=== PATIENT | male | born 1950 | race Caucasian/White ===

== ENCOUNTER 2016-02-10 11:24 | Emergency (ER) | payer MEDICARE ==
[2016-02-10 11:46] VITALS: O2SAT 98
--- NOTE | 2016-02-10 11:55 | ERPHSYRPT ---
- History of Present Illness Time Seen by Provider: 02/10/16 11:45 Source: patient Exam Limitations: no limitations Patient Subjective Stated Complaint: fall at 1030 Triage Nursing Assessment: states [place] and feet came out landing on back. c/o lower back pain, rt hip and rt shoulder. denies loc. no bruising or swelling noted. gait slow but steady into ER. nonspecific as to where he gets his pain pills from. abrasion to rt 5th dorsal mid knuckle-- bleeding controlled Occurred: hours ago (1) Reason for Fall: slipped Injuries/Pain Location: back, upper, lower Loss of Consciousness: no loss of consciousness Quality: sharpness Severity of Pain-Max: moderate Severity of Pain-Current: moderate Modifying Factors: Improves With: movement Associated Symptoms (Fall): back pain Allergies/Adverse Reactions: codeine Allergy (Verified 02/10/16 11:47) Home Medications: No Home Meds 1 ea MC UD 02/10/16 [History] Hx Tetanus, Diphtheria Vaccination/Date Given: Yes Hx Influenza Vaccination/Date Given: No Hx Pneumococcal Vaccination/Date Given: No Immunizations Up to Date: Yes - Review of Systems Constitutional: No Symptoms Eyes: No Symptoms Ears, Nose, & Throat: No Symptoms Respiratory: No Symptoms Cardiac: No Symptoms Abdominal/Gastrointestinal: No Symptoms Genitourinary Symptoms: No Symptoms Musculoskeletal: Back Pain, Fall, Joint Pain Skin: No Symptoms Neurological: No Symptoms Psychological: No Symptoms Endocrine: No Symptoms Hematologic/Lymphatic: No Symptoms Immunological/Allergic: No Symptoms - Past Medical History Pertinent Past Medical History: Yes Neurological History: TIA ENT History: No Pertinent History Cardiac History: Coronary Artery Disease, High Cholesterol, Hypertension Respiratory History: Other Endocrine Medical History: No Pertinent History Musculoskeletal History: Other GI Medical History: GERD History: No Pertinent History Psycho-Social History: No Pertinent History Male Reproductive Disorders: No Pertinent History Other Medical History: BACK PAIN - Past Surgical History Past Surgical History: Yes Neuro Surgical History: No Pertinent History Cardiac: No Pertinent History Respiratory: No Pertinent History Gastrointestinal: Cholecystectomy Genitourinary: No Pertinent History Musculoskeletal: Orthopedic Surgery Male Surgical History: No Pertinent History Other Surgical History: LEFT WRIST - Social History Smoking Status: Current every day smoker How long have you smoked: 58 Exposure to second hand smoke: Yes Drug Use: none Patient Lives Alone: Yes - Nursing Vital Signs Nursing Vital Signs: Initial Vital Signs Temperature 98.3 F Temperature Source Oral Pulse Rate 64 Respiratory Rate 18 Blood Pressure 126/68 Pain Intensity 10 - Seng Coma Score Best Eye Response (Seng): (4) open spontaneously Best Verbal Response ([place]): (5) oriented Best Motor Response ([place]): (6) obeys commands Seng Total: 15 - Physical Exam General Appearance: mild distress Head Injury: no evidence of injury Eye Exam: eyes nml inspection ENT Exam: airway nml Neck Exam: supple, trachea midline, full range of motion, normal alignment Respiratory/Chest Exam: normal breath sounds Cardiovascular Exam: normal heart sounds, regular rate/rhythm, normal peripheral pulses Gastrointestinal Exam: soft, normal bowel sounds Back Exam: normal inspection (lumbar), normal range of motion Extremity Exam: normal inspection, normal range of motion, capillary refill <3 sec, pelvis stable Neurologic Exam: alert, oriented x 3, cooperative Skin Exam: normal color, warm, dry SpO2 Interpretation: normal SpO2: 98 Oxygen Delivery: Room Air - Course Nursing assessment & vital signs reviewed: Yes - Radiology Exams Hip X-ray Interpretation: Discussed w/ radiologist, Negative Shoulder X-ray Interpretation: Discussed w/ radiologist (Stable moderate AC degenerative arthropathy. No new injury.) L-Spine X-ray Interpretation: Discussed w/ radiologist (Nonacute lumbar spine with chronic features of DDD.) Ordered Tests: Active Orders 24 hr Category Date Time Status Wound Care STAT Care 02/10/16 12:46 Active HIP UNI (2V) INCL PEL IF DONE Stat Exams 02/10/16 11:53 Completed LUMBAR LIMITED (2 OR 3 VIEWS) Stat Exams 02/10/16 11:53 Completed SHOULDER Stat Exams 02/10/16 11:53 Completed Medication Summary Discontinued Medications Generic Name Dose Route Start Last Admin Trade Name Freq PRN Reason Stop Dose Admin Bacitracin 0.9 gm 02/10/16 12:46 02/10/16 12:48 Baciguent Packet TP 02/10/16 12:47 0.9 gm STAT ONE Administration Bacitracin Confirm 02/10/16 12:48 Baciguent Packet Administered 02/10/16 12:49 Dose 1 gm .ROUTE .STK-MED ONE - Progress Progress: improved Counseled pt/family regarding: diagnosis, need for follow-up (PCP 1 week), rad results - Departure Time of Disposition: 13:00 Departure Disposition: Home Clinical Impression: Chronic back pain Contusion of right shoulder Qualifiers: Encounter type: initial encounter Qualified Code(s): S40.011A - Contusion of right shoulder, initial encounter Accidental fall Qualifiers: Encounter type: initial encounter Qualified Code(s): W19.XXXA - Unspecified fall, initial encounter Condition: Stable Critical Care Time: No
--- NOTE | 2016-02-10 12:32 | XRAY ---
Indication: Pain following fall. Comparison: October 01, 2013 3 views of the lumbar spine demonstrate stable moderate L2-L3 degenerative disc disease, minimal L5-S1 disc space narrowing with facet arthropathy, and minimal L4-L5 endplate spurring. Again negative for acute fracture, subluxation, or suspicious bony lesions. There remains scattered aortic calcifications. Interval cholecystectomy. Impression: Again nonacute lumbar spine with chronic features.
--- NOTE | 2016-02-10 12:34 | XRAY ---
Indication: Pain following fall. Comparison: None 2 views of the right hip intact. No bony, articular, or soft tissue abnormalities.
--- NOTE | 2016-02-10 12:35 | XRAY ---
Indication: Pain following fall. Comparison: May 30, 2014 3 views of the right shoulder demonstrate stable moderate AC degenerative arthropathy. No new/acute bony, articular, or soft tissue abnormalities.
[2016-02-10] MEDS ORDERED: BACIGUENT PACKET TP ONE (12:46)
[2016-02-10] MEDS ORDERED: BACIGUENT PACKET ONE (12:48)
[2016-02-10 13:08] VITALS: BP 134/70; PULSE 73
== END 2016-02-10 13:08 | disposition home or self-care (01) ==
LOC: ED 11:24
DX: S40.011A Contusion of right shoulder, initial encounter (principal); M54.9 Dorsalgia, unspecified; W01.0XXA Fall on same level from slipping, tripping and stumbling without subsequent striking against object, initial encounter; M25.551 Pain in right hip; M25.511 Pain in right shoulder; S60.416A Abrasion of right little finger, initial encounter; I25.10 Atherosclerotic heart disease of native coronary artery without angina pectoris; E78.00 Pure hypercholesterolemia, unspecified; I10 Essential (primary) hypertension
CPT/HCPCS: 72100; 73030; 73502; 99283

== ENCOUNTER 2018-03-29 16:32 | Emergency (ER) | payer MEDICARE ==
--- NOTE | 2018-03-29 16:44 | ERPHSYRPT ---
- History of Present Illness Time Seen by Provider: 03/29/18 16:39 Source: patient Exam Limitations: no limitations Physician History: 67 y/o white male presents with urinary retention for a couple of days. no more than a trickle at a time. he has also noticed some constipation. he feels as though he is going to bust. felt feverish at home. no n/v/d. has lower suprapubic pressure. pt states he is not on any meds. he states he does have kidney issues. Timing/Duration: day(s) ( a few days.), gradual onset Quality: fullness, pressure Onset Location: suprapubic Severity of Pain-Max: mild Severity of Pain-Current: mild Modifying Factors: Improves With: defecating (not as much), urinating (not as much) Associated Symptoms: abdominal pain Sexual intercourse history: non-contributory Allergies/Adverse Reactions: codeine Allergy (Verified 03/29/18 16:50) Home Medications: No Home Meds [No Home Meds] 1 [facility] MERYL 02/10/16 [History] Hx Tetanus, Diphtheria Vaccination/Date Given: Yes Hx Influenza Vaccination/Date Given: No Hx Pneumococcal Vaccination/Date Given: No - Past Medical History Pertinent Past Medical History: Yes Neurological History: TIA ENT History: No Pertinent History Cardiac History: Coronary Artery Disease, High Cholesterol, Hypertension Respiratory History: Other Endocrine Medical History: No Pertinent History Musculoskeletal History: Other GI Medical History: GERD History: No Pertinent History Psycho-Social History: No Pertinent History Male Reproductive Disorders: No Pertinent History Other Medical History: BACK PAIN - Past Surgical History Past Surgical History: Yes Neuro Surgical History: No Pertinent History Cardiac: No Pertinent History Respiratory: No Pertinent History Gastrointestinal: Cholecystectomy Genitourinary: No Pertinent History Musculoskeletal: Orthopedic Surgery Male Surgical History: No Pertinent History Other Surgical History: LEFT WRIST - Social History Smoking Status: Current every day smoker How long have you smoked: 58 Exposure to second hand smoke: Yes Drug Use: none Patient Lives Alone: Yes - Review of Systems Constitutional: Fever Eyes: No Symptoms Ears, Nose, & Throat: No Symptoms Respiratory: No Symptoms Cardiac: No Symptoms Abdominal/Gastrointestinal: Abdominal Pain Genitourinary Symptoms: Urinary Retention Musculoskeletal: No Symptoms Skin: No Symptoms Neurological: No Symptoms Psychological: No Symptoms Endocrine: No Symptoms Hematologic/Lymphatic: No Symptoms Immunological/Allergic: No Symptoms All Other Systems: Reviewed and Negative - Nursing Vital Signs Nursing Vital Signs: Initial Vital Signs Temperature 100.8 F 03/29/18 16:36 Pulse Rate 105 H 03/29/18 16:36 Respiratory Rate 16 03/29/18 16:36 Blood Pressure 133/74 03/29/18 16:36 O2 Sat by Pulse Oximetry 96 03/29/18 16:36 Pain Scale Pain Intensity 8 - Physical Exam General Appearance: mild distress, alert, anxiety Eye Exam: PERRL/EOMI Ears, Nose, Throat Exam: normal ENT inspection, dry mucous membranes Neck Exam: normal inspection, non-tender, supple, full range of motion Respiratory Exam: normal breath sounds, lungs clear, airway intact, No chest tenderness, No respiratory distress, No accessory muscle use, No rhonchi, No wheezing, No stridor Cardiovascular Exam: regular rate/rhythm, normal heart sounds, normal peripheral pulses Gastrointestinal/Abdomen Exam: soft, tenderness (suprapubic), No guarding, No rebound Rectal Exam: not done Back Exam: normal inspection, normal range of motion, No CVA tenderness, No vertebral tenderness Extremity Exam: normal inspection, normal range of motion, pelvis stable Neurologic Exam: alert, oriented x 3, cooperative, management internship II-XII nml as tested Skin Exam: normal color, warm, dry Lymphatic Exam: No adenopathy SpO2 Interpretation: normal O2 Delivery: Room Air - Course Nursing assessment & vital signs reviewed: Yes Ordered Tests: Active Orders 24 hr Category Date Time Status Cath for Specimen-Straight STAT Care 03/29/18 16:47 Active Muller [Catheter-Gillette Muller] STAT Care 03/29/18 16:58 Active IV Insertion STAT Care 03/29/18 16:45 Active ABDOMEN AND PELVIS W/0 CONTRAS [CT] Stat Exams 03/29/18 16:46 Completed AMYLASE Stat Lab 03/29/18 16:45 Completed BLOOD CULTURE Stat Lab 03/29/18 16:46 Ordered CBC W DIFF Stat Lab 03/29/18 16:45 Completed CMP Stat Lab 03/29/18 16:45 Completed CULTURE,URINE Stat Lab 03/29/18 16:57 Received LIPASE Stat Lab 03/29/18 16:45 Completed Lactic Acid Stat Lab 03/29/18 17:00 Completed Manual Differential NC Stat Lab 03/29/18 16:45 Completed UA W/RFX UR CULTURE Stat Lab 03/29/18 16:57 Completed Medication Summary Generic Name Dose Route Start Last Admin Trade Name Ludin PRN Reason Stop Dose Admin Acetaminophen 650 mg 03/29/18 17:52 Tylenol 325 Mg PO 03/29/18 17:53 STAT STA Ceftriaxone Sodium/Dextrose 1 g in 50 mls @ 100 mls/hr 03/29/18 17:39 Rocephin 1 Gm-D5w 50 Ml Bag IV 03/29/18 18:08 STAT STA Discontinued Medications Generic Name Dose Route Start Last Admin Trade Name Freq PRN Reason Stop Dose Admin Sodium Chloride 1,000 mls @ 999 mls/hr 03/29/18 16:45 03/29/18 16:58 Sodium Chloride 0.9% 1000 Ml IV 03/29/18 17:45 999 mls/hr .Q1H1M STA Administration Sodium Chloride Confirm 03/29/18 16:56 Sodium Chloride 0.9% 1000 Ml Administered 03/29/18 16:57 Dose 1,000 mls @ ud .ROUTE .STK-MED ONE Ceftriaxone Sodium/Dextrose Confirm 03/29/18 17:43 Rocephin 1 Gm-D5w 50 Ml Bag Administered 03/29/18 17:44 Dose 1 g in 50 mls @ ud IV .STK-MED ONE Lab/Rad Data: Laboratory Result Diagrams 03/29/18 16:45 03/29/18 16:45 Laboratory Results 03/29/18 03/29/18 03/29/18 Range/Units 17:00 16:57 16:45 WBC (4.0-10.5) K/mm3 RBC (4.1-5.6) M/mm3 Hgb (12.5-18.0) gm/dl Hct (42-50) % MCV (78-100) fl MCH (26-32) pg MCHC (32-36) g/dl RDW (11.5-14.0) % Plt Count (150-450) K/mm3 MPV (6-9.5) fl Segmented Neutrophils (36.-66.) % Band Neutrophils (0.0-2.0) % Lymphocytes (Manual) (24-44) % Monocytes (Manual) (0.0-12.0) % Platelet Estimate (NORMAL) RBC Morphology Sodium 136 L (137-145) mmol/L Potassium 4.0 (3.5-5.1) mmol/L Chloride 103 (98-107) mmol/L Carbon Dioxide 25 (22-30) mmol/L Anion Gap 12.9 (5-15) MEQ/L BUN 14 (9-20) mg/dL Creatinine 1.37 H (0.66-1.25) mg/dL Estimated GFR 55.3 ML/MIN Glucose 113 H (74-106) mg/dL Lactic Acid 1.2 (0.4-2.0) Calcium 9.1 (8.4-10.2) mg/dL Total Bilirubin 1.10 (0.2-1.3) mg/dL AST 20 (17-59) U/L ALT 28 (0-50) U/L Alkaline Phosphatase 87 (38-126) U/L Serum Total Protein 7.6 (6.3-8.2) g/dL Albumin 4.3 (3.5-5.0) g/dL Amylase 63 (30-110) U/L Lipase 83 (23-300) U/L Urine Color YELLOW (YELLOW) Urine Appearance CLOUDY (CLEAR) Urine pH 5.0 (5-6) Ur Specific [place] 1.019 (1.005-1.025) Urine Protein 30 (Negative) Urine Ketones NEGATIVE (NEGATIVE) Urine Blood LARGE (0-5) Sadiq/ul Urine Nitrite POSITIVE (NEGATIVE) Urine Bilirubin NEGATIVE (NEGATIVE) Urine Urobilinogen NEGATIVE (0-1) mg/dL Ur Leukocyte Esterase MODERATE (NEGATIVE) Urine WBC (Auto) >100 (0-5) /HPF Urine RBC (Auto) >101 (0-2) /HPF U Epithel Cells (Auto) FEW (FEW) /HPF Urine Bacteria (Auto) MANY (NEGATIVE) /HPF Unidentified Crystals 25-50 (NEGATIVE) /HPF Urine Mucus (Auto) SLIGHT (NEGATIVE) /HPF Urine Culture Reflexed YES (NO) Urine Glucose NEGATIVE (NEGATIVE) mg/dL 03/29/18 Range/Units 16:45 WBC 22.3 H (4.0-10.5) K/mm3 RBC 5.44 (4.1-5.6) M/mm3 Hgb 16.1 (12.5-18.0) gm/dl Hct 47.6 (42-50) % MCV 87.5 (78-100) fl MCH 29.6 (26-32) pg MCHC 33.8 (32-36) g/dl RDW 13.5 (11.5-14.0) % Plt Count 133 L (150-450) K/mm3 MPV 11.1 H (6-9.5) fl Segmented Neutrophils 79 H (36.-66.) % Band Neutrophils 5 H (0.0-2.0) % Lymphocytes (Manual) 13 L (24-44) % Monocytes (Manual) 3 (0.0-12.0) % Platelet Estimate DECREASED (NORMAL) RBC Morphology NORMAL Sodium (137-145) mmol/L Potassium (3.5-5.1) mmol/L Chloride (98-107) mmol/L Carbon Dioxide (22-30) mmol/L Anion Gap (5-15) MEQ/L BUN (9-20) mg/dL Creatinine (0.66-1.25) mg/dL Estimated GFR ML/MIN Glucose (74-106) mg/dL Lactic Acid (0.4-2.0) Calcium (8.4-10.2) mg/dL Total Bilirubin (0.2-1.3) mg/dL AST (17-59) U/L ALT (0-50) U/L Alkaline Phosphatase (38-126) U/L Serum Total Protein (6.3-8.2) g/dL Albumin (3.5-5.0) g/dL Amylase (30-110) U/L Lipase (23-300) U/L Urine Color (YELLOW) Urine Appearance (CLEAR) Urine pH (5-6) Ur Specific Vass (1.005-1.025) Urine Protein (Negative) Urine Ketones (NEGATIVE) Urine Blood (0-5) Sadiq/ul Urine Nitrite (NEGATIVE) Urine Bilirubin (NEGATIVE) Urine Urobilinogen (0-1) mg/dL Ur Leukocyte Esterase (NEGATIVE) Urine WBC (Auto) (0-5) /HPF Urine RBC (Auto) (0-2) /HPF U Epithel Cells (Auto) (FEW) /HPF Urine Bacteria (Auto) (NEGATIVE) /HPF Unidentified Crystals (NEGATIVE) /HPF Urine Mucus (Auto) (NEGATIVE) /HPF Urine Culture Reflexed (NO) Urine Glucose (NEGATIVE) mg/dL - Progress Progress: improved, re-examined Progress Note: 03/29/18 17:34 ct scan abd/pelvis-no acute process. Counseled pt/family regarding: lab results, diagnosis, need for follow-up, rad results - Departure Time of Disposition: 17:55 Departure Disposition: Home Clinical Impression: Mild renal insufficiency, UTI (urinary tract infection), Leukocytosis Condition: Stable Critical Care Time: No Referrals: SARAH HENRY MD [Primary Care Provider] - Additional Instructions: drink plenty of fluids. use tylenol for pain and fever. follow up with primary doctor for further management Prescriptions: Ciprofloxacin [Cipro 500 MG] 500 mg PO BID #20 tablet
[2018-03-29] MEDS ORDERED: Sodium Chloride 0.9% 1000 ML 1,000 ML IV STA (16:45)
[2018-03-29] MEDS ORDERED: Sodium Chloride 0.9% 1000 ML 1,000 ML ONE (16:56)
[2018-03-29 17:10] LABS: Hematocrit 47.6 % (42-50); Hemoglobin 16.1 gm/dl (12.5-18.0); Mean Cell Volume 87.5 fl (78-100); Mean Corpuscular Hemoglobin 29.6 pg (26-32); Mean Corpuscular Hgb Concent. 33.8 g/dl (32-36); Mean Platelet Volume 11.1 fl (6-9.5); Platelet Count 133 K/mm3 (150-450); Red Blood Count 5.44 M/mm3 (4.1-5.6); Red Cell Distribution Width 13.5 % (11.5-14.0); White Blood Count 22.3 K/mm3 (4.0-10.5)
--- NOTE | 2018-03-29 17:13 | XRAY ---
Indication: Fever, constipation, and urinary retention. Multiple contiguous axial images obtained through the abdomen and pelvis without contrast as ordered. Comparison: September 30, 2013. Lung bases demonstrates minimal bibasilar dependent atelectasis and left base fibrosis/scarring. No infiltrate or effusion. Heart is not enlarged. Noncontrasted stomach and bowel loops appear nonobstructed. Normal appendix. Little scattered colonic fecal debris. New balloon tip Muller catheter empties the urinary bladder. Interval cholecystectomy. No free fluid/air. New splenomegaly measuring 14.3 cm in CC dimension. Remaining liver, pancreas, spleen, adrenal glands, kidneys, and ureters unremarkable for noncontrast exam. Mild aortoiliac calcifications without AAA. Osseous structures intact again with mild degenerative changes throughout the spine. No ventral or inguinal hernias. Impression: 1. New splenomegaly and Muller catheter in situ. 2. Remaining CT abdomen/pelvis without contrast exam is negative. CTDI 17.38
[2018-03-29 17:23] LABS: ALBUMIN 4.3 g/dL (3.5-5.0); ANION GAP 12.9 MEQ/L (5-15); BILIRUBIN,TOTAL 1.1 mg/dL (0.2-1.3); Calcium 9.1 mg/dL (8.4-10.2); Creatinine 1 1.37 mg/dL (0.66-1.25); Total Protein 7.6 g/dL (6.3-8.2)
[2018-03-29 17:26] LABS: Appearance CLOUDY (CLEAR); Bacteria MANY /HPF (NEGATIVE); Bilirubin NEGATIVE (NEGATIVE); Blood LARGE Ery/ul (0-5); Crystals Unidentified 25-50 /HPF (NEGATIVE); Glucose NEGATIVE (NEGATIVE); Ketones NEGATIVE (NEGATIVE); Leukocyte Esterase MODERATE (NEGATIVE); Mucus SLIGHT /HPF (NEGATIVE); Nitrite POSITIVE (NEGATIVE); Protein,Urine Dip 30 (Negative); Specific Gravity 1.019 (1.005-1.025); Urobilinogen NEGATIVE mg/dL (0-1); WBC >100 /HPF (0-5)
[2018-03-29 17:27] LABS: RBC >101 /HPF (0-2)
[2018-03-29 17:28] LABS: Epithelial Cells FEW /HPF (FEW)
[2018-03-29] MEDS ORDERED: ROCEPHIN 1 Gm-D5w 50 ml Bag** 1 G/50 ML IVPB IV STA (17:39)
[2018-03-29 17:41] LABS: BAND 5 % (0.0-2.0); Lymphocytes 13 % (24-44); Monocyte 3 % (0.0-12.0); Neutrophils 79 % (36.-66.); Platelet Estimate DECREASED (NORMAL); Total Cells Counted 100
[2018-03-29] MEDS ORDERED: ROCEPHIN 1 Gm-D5w 50 ml Bag** 1 G/50 ML IVPB IV ONE (17:43)
[2018-03-29] MEDS ORDERED: Zofran 4 MG/2 ML VIAL IV ONE (17:51)
[2018-03-29] MEDS ORDERED: TYLENOL 325 MG PO STA (17:52)
[2018-03-29] MEDS ORDERED: TORAdol 30 mg Injection IV ONE (17:52)
[2018-03-29] MEDS ORDERED: ZOFRAN ODT 4 MG ONE (17:59)
[2018-03-29] MEDS ORDERED: TORAdol 30 mg Injection ONE (17:59)
[2018-03-29] MEDS ORDERED: TYLENOL 325 MG ONE (17:59)
[2018-03-29] MEDS ORDERED: Zofran 4 MG/2 ML VIAL ONE (18:03)
[2018-03-29 18:38] VITALS: BP 116/62; PULSE 102; O2SAT 97
== END 2018-03-29 18:42 | disposition home or self-care (01) ==
LOC: ED 16:32
DX: N28.9 Disorder of kidney and ureter, unspecified (principal); N39.0 Urinary tract infection, site not specified; D72.829 Elevated white blood cell count, unspecified; I25.10 Atherosclerotic heart disease of native coronary artery without angina pectoris; I10 Essential (primary) hypertension; Z86.73 Personal history of transient ischemic attack (TIA), and cerebral infarction without residual deficits; K21.9 Gastro-esophageal reflux disease without esophagitis
CPT/HCPCS: 36000; 36415; 51702; 74176; 80053; 81001; 82150; 83605; 83690; 85025; 87077; 87086; 87186; 96360; 96365; 96374; 96375; 99285; P9612; J0696; J1885; J2405; Q0162; A9270-GY

== ENCOUNTER 2020-03-03 16:22 | Emergency (ER) | payer MEDICARE ==
[2020-03-03 17:00] LABS: Absolute Neutrophil Ct (ANC) 5.15 (1.4-6.9); BASOPHIL % 0.5 % (0.0-0.4); Basophil (Absolute #) 0.04 (0-0.4); Eosinophil (Absolute #) 0.08 (0-0.5); Hematocrit 46.8 % (42-50); Hemoglobin 15.7 gm/dl (12.5-18.0); Lymphocytes % 27.6 % (24.0-44.0); Mean Cell Volume 88.3 fl (78-100); Mean Corpuscular Hemoglobin 29.6 pg (26-32); Mean Corpuscular Hgb Concent. 33.5 g/dl (32-36); Mean Platelet Volume 10.7 fl (7.5-11.0); Monocyte (Absolute #) 0.51 (0.0-1.3); Monocytes % 6.4 % (0.0-12.0); Neutrophil % 64.5 % (36.0-66.0); Platelet Count 161 K/mm3 (150-450); Red Cell Distribution Width 13.3 % (11.5-14.0)
[2020-03-03 17:09] LABS: Appearance CLEAR (CLEAR); Bilirubin NEGATIVE (NEGATIVE); Blood SMALL Ery/ul (0-5); Glucose NEGATIVE (NEGATIVE); Ketones NEGATIVE (NEGATIVE); Leukocyte Esterase NEGATIVE (NEGATIVE); Nitrite NEGATIVE (NEGATIVE); Protein,Urine Dip NEGATIVE (Negative); RBC 0-2 /HPF (0-2); Specific Gravity 1.013 (1.005-1.025); Urobilinogen NEGATIVE mg/dL (0-1)
[2020-03-03 17:15] LABS: ALBUMIN 4.3 g/dL (3.5-5.0); ANION GAP 10.9 MEQ/L (5-15); BILIRUBIN,TOTAL 0.5 mg/dL (0.2-1.3); Calcium 9.3 mg/dL (8.4-10.2); Creatinine 1 1.28 mg/dL (0.66-1.25); EST GLOMERULAR FILTRATION RATE 59.4 ML/MIN; Potassium 4.5 mmol/L (3.5-5.1); Total Protein 7.6 g/dL (6.3-8.2)
[2020-03-03 17:34] VITALS: BP 114/68; PULSE 72; O2SAT 95
--- NOTE | 2020-03-03 17:48 | ERPHSYRPT ---
- History of Present Illness Time Seen by Provider: 03/03/20 17:00 Patient Subjective Stated Complaint: Pt states that he has been having pain in his lower groin for the past 4-5 months and he has been urinating a lot too, reports having pain in his lower back that he used to get oxycodone from Dr. Gonzales for Triage Nursing Assessment: Pt brought self to the ER, vitals wnl, rates pain as an 8/10 when he urinates, pulses normal, skin n/w/d, denies any injuries to testicales or groin, doesn't appear to be in any distress Physician History: 69-year-old male with a history of 4 weeks or months of chronic frequent urination difficulty starting his urine feeling as if he does not empty completely. He also complains of dysuria with urination denies any fever chills or sweats the pain is primarily suprapubic but is now developed some pain in the flanks. Quality: burning, pressure Onset Location: suprapubic, generalized flank Pain Radiation: generalized flank Severity of Pain-Max: moderate Severity of Pain-Current: mild Modifying Factors: Improves With: urinating Associated Symptoms: abdominal pain, urinary frequency Prior abdominal problems: none Allergies/Adverse Reactions: codeine Allergy (Verified 03/03/20 16:44) Home Medications: Tamsulosin HCl 0.4 mg PO DAILY 03/03/20 [History] Hx Tetanus, Diphtheria Vaccination/Date Given: Yes Hx Influenza Vaccination/Date Given: No Hx Pneumococcal Vaccination/Date Given: No Travel Risk - International Travel Have you traveled outside of the country in past 3 weeks: No - Coronavirus Screening Are you exhibiting any of the following symptoms?: No Close contact with a COVID-19 positive Pt in past 14-21 Days: No - Past Medical History Pertinent Past Medical History: Yes Neurological History: TIA ENT History: No Pertinent History Cardiac History: Coronary Artery Disease, High Cholesterol, Hypertension Respiratory History: Other Endocrine Medical History: No Pertinent History Musculoskeletal History: Other GI Medical History: GERD History: No Pertinent History Psycho-Social History: No Pertinent History Male Reproductive Disorders: No Pertinent History Other Medical History: BACK PAIN - Past Surgical History Past Surgical History: Yes Neuro Surgical History: No Pertinent History Cardiac: No Pertinent History Respiratory: No Pertinent History Gastrointestinal: Cholecystectomy Genitourinary: No Pertinent History Musculoskeletal: Orthopedic Surgery Male Surgical History: No Pertinent History Other Surgical History: LEFT WRIST - Social History Smoking Status: Current every day smoker How long have you smoked: 58 Exposure to second hand smoke: Yes Drug Use: none Patient Lives Alone: No - Review of Systems Constitutional: No Fever, No Chills Eyes: No Symptoms Ears, Nose, & Throat: No Symptoms Respiratory: No Cough, No Dyspnea Cardiac: No Chest Pain, No Edema, No Syncope Abdominal/Gastrointestinal: No Abdominal Pain, No Nausea, No Vomiting, No Diarrhea Genitourinary Symptoms: Dysuria, Frequency, Hesitancy, Urgency, Urinary Retention Musculoskeletal: No Back Pain, No Neck Pain Skin: No Rash Neurological: No Dizziness, No Focal Weakness, No Sensory Changes Psychological: No Symptoms Endocrine: No Symptoms All Other Systems: Reviewed and Negative - Nursing Vital Signs Nursing Vital Signs: Initial Vital Signs Temperature 97.3 F 03/03/20 16:31 Pulse Rate 69 03/03/20 16:31 Blood Pressure 140/73 03/03/20 16:31 O2 Sat by Pulse Oximetry 97 03/03/20 16:31 Pain Scale Pain Intensity 8 - Physical Exam General Appearance: no apparent distress, alert Eye Exam: PERRL/EOMI Ears, Nose, Throat Exam: pharynx normal, moist mucous membranes Neck Exam: normal inspection, supple Respiratory Exam: normal breath sounds, lungs clear Cardiovascular Exam: regular rate/rhythm, No edema Gastrointestinal/Abdomen Exam: soft, No tenderness Back Exam: normal inspection, No CVA tenderness Extremity Exam: normal inspection, normal range of motion, No pedal edema Neurologic Exam: alert, oriented x 3, cooperative, sensation nml, No motor deficits Skin Exam: normal color, warm, dry, No rash SpO2: 95 - Course Nursing assessment & vital signs reviewed: Yes - CT Exams Abdomen/Pelvis CT Interpretation: Other (Compared to approximate 1 year ago there is a stable 14 cm splenomegaly enlarged prostate no new or acute findings.) Ordered Tests: Active Orders 24 hr Category Date Time Status ABDOMEN AND PELVIS W/0 CONTRAS [CT] Stat Exams 03/03/20 16:42 Taken CBC W DIFF Stat Lab 03/03/20 16:55 Completed CMP Stat Lab 03/03/20 16:55 Completed UA W/RFX UR CULTURE Stat Lab 03/03/20 16:44 Completed Lab/Rad Data: Laboratory Result Diagrams 03/03/20 16:55 03/03/20 16:55 Laboratory Results 03/03/20 03/03/20 03/03/20 Range/Units 16:55 16:55 16:44 WBC 8.0 (4.0-10.5) K/mm3 RBC 5.30 (4.1-5.6) M/mm3 Hgb 15.7 (12.5-18.0) gm/dl Hct 46.8 (42-50) % MCV 88.3 (78-100) fl MCH 29.6 (26-32) pg MCHC 33.5 (32-36) g/dl RDW 13.3 (11.5-14.0) % Plt Count 161 (150-450) K/mm3 MPV 10.7 (7.5-11.0) fl Gran % 64.5 (36.0-66.0) % Eos # (Auto) 0.08 (0-0.5) Absolute Lymphs (auto) 2.20 (1.0-4.6) Absolute Monos (auto) 0.51 (0.0-1.3) Lymphocytes % 27.6 (24.0-44.0) % Monocytes % 6.4 (0.0-12.0) % Eosinophils % 1.0 (0.00-5.0) % Basophils % 0.5 (0.0-0.4) % Absolute Granulocytes 5.15 (1.4-6.9) Basophils # 0.04 (0-0.4) Sodium 137 (137-145) mmol/L Potassium 4.5 (3.5-5.1) mmol/L Chloride 106 (98-107) mmol/L Carbon Dioxide 25 (22-30) mmol/L Anion Gap 10.9 (5-15) MEQ/L BUN 21 H (9-20) mg/dL Creatinine 1.28 H (0.66-1.25) mg/dL Estimated GFR 59.4 ML/MIN Glucose 104 (74-106) mg/dL Calcium 9.3 (8.4-10.2) mg/dL Total Bilirubin 0.50 (0.2-1.3) mg/dL AST 28 (17-59) U/L ALT 25 (0-50) U/L Alkaline Phosphatase 79 (38-126) U/L Serum Total Protein 7.6 (6.3-8.2) g/dL Albumin 4.3 (3.5-5.0) g/dL Urine Color YELLOW (YELLOW) Urine Appearance CLEAR (CLEAR) Urine pH 5.0 (5-6) Ur Specific [place] 1.013 (1.005-1.025) Urine Protein NEGATIVE (Negative) Urine Ketones NEGATIVE (NEGATIVE) Urine Blood SMALL (0-5) Sadiq/ul Urine Nitrite NEGATIVE (NEGATIVE) Urine Bilirubin NEGATIVE (NEGATIVE) Urine Urobilinogen NEGATIVE (0-1) mg/dL Ur Leukocyte Esterase NEGATIVE (NEGATIVE) Urine WBC (Auto) NONE (0-5) /HPF Urine RBC (Auto) 0-2 (0-2) /HPF U Epithel Cells (Auto) NONE (FEW) /HPF Urine Bacteria (Auto) NONE (NEGATIVE) /HPF Urine Culture Reflexed NO (NO) Urine Glucose NEGATIVE (NEGATIVE) mg/dL - Progress Progress: unchanged - Departure Departure Disposition: Home Clinical Impression: Prostatitis Condition: Stable Critical Care Time: No Referrals: SARAH HENRY MD [Primary Care Provider] - Prescriptions: Ciprofloxacin [Cipro 500 MG] 500 mg PO BID 21 Days #42 tablet
--- NOTE | 2020-03-04 08:41 | XRAY ---
Indication: Groin pain one month. Multiple contiguous axial images obtained through the abdomen and pelvis without contrast as ordered. Comparison: March 29, 2018. Lung bases again demonstrates mild bilateral dependent atelectasis, left base fibrosis/scarring, and tiny right base calcified granulomas. No infiltrate or effusion. Heart is not enlarged. Noncontrasted stomach and bowel loops appear nonobstructed. Normal appendix. No free fluid/air. There is again 14 cm splenomegaly, enlarged prostate gland, and previous cholecystectomy. Remaining liver, pancreas, spleen, adrenal glands, kidneys, ureters, and bladder appear unremarkable for noncontrast exam. Stable mild aortoiliac calcifications without AAA. Osseous structures intact again with mild degenerative changes throughout the spine. No ventral or inguinal hernias. Impression: 1. Again incidental splenomegaly, enlarged prostate gland, and chronic bony findings. 2. Remaining CT abdomen/pelvis without contrast exam is negative.
== END 2020-03-03 19:04 | disposition home or self-care (01) ==
LOC: ED 16:22
DX: R10.30 Lower abdominal pain, unspecified (principal); R35.0 Frequency of micturition; R30.0 Dysuria; N41.9 Inflammatory disease of prostate, unspecified; I25.10 Atherosclerotic heart disease of native coronary artery without angina pectoris; E78.5 Hyperlipidemia, unspecified; I10 Essential (primary) hypertension; M54.5 Low back pain; F17.200 Nicotine dependence, unspecified, uncomplicated
CPT/HCPCS: 36415; 74176; 80053; 81001; 85025; 99284